=== PATIENT | female | born 1975 | race Caucasian/White ===

== ENCOUNTER → 2017-10-14 | Outpatient (CLI) | payer OTHER ==
[~2017-10-14] MED LIST: LIDOCAINE 1%, 20ML ONE; LIDOCAINE 1%-EPI 1:100K, 20ML ONE; SODIUM BICARBONATE 4.2%, 5ML ONE
== END | disposition home or self-care (01) ==
LOC: CFH 08:07
PROVIDERS: ATTEND Obstetrics & Gynecology
DX: R92.0 Mammographic microcalcification found on diagnostic imaging of breast (principal)
CPT/HCPCS: 19081; 77065; 88305; J3490

== ENCOUNTER → 2017-10-21 | Outpatient (CLI) | payer OTHER | END | disposition home or self-care (01) | LOC: CFH 09:10 | PROVIDERS: ATTEND Obstetrics & Gynecology | DX: R92.0 Mammographic microcalcification found on diagnostic imaging of breast (principal); Z86.000 Personal history of in-situ neoplasm of breast | CPT/HCPCS: 19081; 77066; J3490; 88305 ==

== ENCOUNTER 2017-11-19 12:14 | Day surgery (SDC) | payer OTHER ==
[2017-11-17 11:11] LABS: BASOPHILS # (AUTO) 0.09 x10^3/uL (0-0.1); BASOPHILS % (AUTO) 2 % (0-1); EOSINOPHILS % (AUTO) 5 % (1-7); LYMPHOCYTES % (AUTO) 27 % (22-44); MD NO; MEAN CORPUSCULAR HEMOGLOBIN 30.6 pg (27.0-34.8); MEAN CORPUSCULAR HGB CONC 33.8 g/dL (32.4-35.8); MEAN CORPUSCULAR VOLUME 90.6 fL (80-100); MEAN PLATELET VOLUME 9.4 fL (7.4-10.4); MONOCYTES # (AUTO) 0.61 x10^3/uL (0.2-0.8); MONOCYTES % (AUTO) 10 % (2-9); NEUTROPHILS % (AUTO) 57 % (42-75); PLATELET COUNT 252 x10^3/uL (130-400); RED BLOOD COUNT 4.44 x10^6/uL (3.82-5.3); RED CELL DISTRIBUTION WIDTH 12.9 % (9.6-15.2)
[~2017-11-19] VITALS: Ht 167.6 cm; Wt 61.9 kg
[~2017-11-19 12:14] MED LIST changes: +BUPIVACAINE/PF-EPI 0.25% 1:200K ONE; +ISOSULFAN BLUE 10 MG/ML, 5ML IV ONE; -LIDOCAINE 1%, 20ML ONE; -LIDOCAINE 1%-EPI 1:100K, 20ML ONE; +No meds per pt.; -SODIUM BICARBONATE 4.2%, 5ML ONE
[2017-11-19] MEDS ORDERED: LACTATED RINGERS 1,000 ML IV SCH ×2 (12:41→20:22)
[2017-11-19 12:48] VITALS: BP 143/91
[2017-11-19] MEDS ORDERED: LIDOCAINE-MPF 1%, 2ML ONE (13:46)
[2017-11-19] MEDS ORDERED: GABAPENTIN 300 MG CAPSULE PO ONE (14:00)
[2017-11-19] MEDS ORDERED: ACETAMINOPHEN 500 MG TABLET PO ONE (14:00)
[2017-11-19] MEDS ORDERED: ONDANSETRON ODT 8 MG PO ONE (14:00)
[2017-11-19] MEDS ORDERED: SCOPOLAMINE PATCH, 1.5MG PATCH.TD72 TD ONE (14:00)
[2017-11-19] MEDS ORDERED: FENTANYL PF 250 MCG/5ML ONE (14:48)
[2017-11-19] MEDS ORDERED: LIDOCAINE-MPF 2% ,5ML ONE (14:48)
[2017-11-19] MEDS ORDERED: DEXAMETHASONE 4 MG/ML, 1ML ONE (14:52)
[2017-11-19] MEDS ORDERED: ONDANSETRON 2MG/ML, 2ML ONE (14:52)
[2017-11-19] MEDS ORDERED: PROPOFOL 10 MG/ML, 20ML ONE (14:52)
[2017-11-19] MEDS ORDERED: CEFAZOLIN 1,000 MG ONE ×2 (14:52→15:29)
[2017-11-19] MEDS ORDERED: ROCURONIUM 10 MG/ML,10ML ONE (15:25)
[2017-11-19] MEDS ORDERED: SUCCINYLCHOLINE 20 MG/ML, 10ML ONE (15:25)
[2017-11-19] MEDS ORDERED: BACITRACIN 50,000 UNIT ONE (15:29)
[2017-11-19] MEDS ORDERED: GENTAMICIN 80 MG/2 ML ONE (15:29)
[2017-11-19] MEDS ORDERED: MEPERIDINE/PF 25MG/0.5ML IVPush PRN (16:30)
[2017-11-19] MEDS ORDERED: OXYcodone 5 MG/5 ML ORAL.SOL UDC PO PRN (16:30)
[2017-11-19] MEDS ORDERED: FENTANYL PF 100 MCG/2ML IV PRN (16:30)
[2017-11-19] MEDS ORDERED: PROMETHAZINE 25 MG SUPP PR PRN (16:30)
[2017-11-19] MEDS ORDERED: LABETALOL 5MG/ML, 20ML IV PRN (16:30)
[2017-11-19] MEDS ORDERED: METOCLOPRAMIDE 5 MG/ML, 2ML IV PRN (16:30)
[2017-11-19] MEDS ORDERED: MORPHINE SULFATE 4 MG/ML, 1ML IVPush PRN (16:30)
[2017-11-19] MEDS ORDERED: PROMETHAZINE 25 MG/ML, 1ML IV PRN (16:30)
[2017-11-19] MEDS ORDERED: ALBUTEROL/IPRATROPIUM 2.5MG/0.5MG, 3 ML NPPB PRN (16:30)
[2017-11-19] MEDS ORDERED: DIAZEPAM 5 MG/ML, 2ML IVPush PRN (16:30)
[2017-11-19] MEDS ORDERED: ONDANSETRON ODT 8 MG PO PRN (16:30)
[2017-11-19] MEDS ORDERED: EPHEDRINE 50 MG/ML, 1ML IM PRN (16:30)
[2017-11-19] MEDS ORDERED: HYDROmorphone 1 MG/ML, 1ML IV PRN (16:30)
[2017-11-19] MEDS ORDERED: MIDAZOLAM 1 MG/ML, 2ML IV PRN (16:30)
[2017-11-19] MEDS ORDERED: MEPERIDINE/PF 50 MG/ML ONE (18:14)
[2017-11-19] MEDS ORDERED: FENTANYL PF 100 MCG/2ML ONE (19:19)
[2017-11-19] MEDS ORDERED: OXYcodone 5 MG/5 ML ORAL.SOL UDC ONE (19:19)
[2017-11-19] MEDS ORDERED: morphine SULFATE 10 MG/ML, 1ML IVPush PRN (20:30)
[2017-11-19] MEDS ORDERED: ONDANSETRON 2MG/ML, 2ML IVPush PRN (20:30)
== END 2017-11-19 21:35 | disposition home or self-care (01) ==
LOC: OUT 12:14 → EDSTATUS 15:00 → 4NOR 20:03 → OUT 21:35
PROVIDERS: ATTEND Surgery
DX: D05.11 Intraductal carcinoma in situ of right breast (principal); D05.12 Intraductal carcinoma in situ of left breast; Z87.891 Personal history of nicotine dependence; Z72.89 Other problems related to lifestyle
CPT/HCPCS: 19303; 36415; 38525; 38792; 71045; 84703; 85025; 88305; 88307; 88329; 88331; 88333; A9541; C1729; C1762; C1789; C9898; J0330; J0690; J1100; J1580; J2175; J2405; J2704; J3010; J3490; J7120; Q0162

== ENCOUNTER 2018-04-27 10:09 | Day surgery (SDC) | payer OTHER ==
[~2018-04-27] VITALS: Ht 167.6 cm; Wt 63.0 kg
[~2018-04-27 10:09] MED LIST changes: -BUPIVACAINE/PF-EPI 0.25% 1:200K ONE; -ISOSULFAN BLUE 10 MG/ML, 5ML IV ONE
[2018-04-27] MEDS ORDERED: MIDAZOLAM 1 MG/ML, 2ML ONE (10:30)
[2018-04-27] MEDS ORDERED: FENTANYL PF 250 MCG/5ML ONE (10:31)
[2018-04-27] MEDS ORDERED: LACTATED RINGERS 1,000 ML IV SCH (10:37)
[2018-04-27 10:47] VITALS: BP 141/91
[2018-04-27] MEDS ORDERED: BUPIVACAINE 0.25% ONE (10:58)
[2018-04-27] MEDS ORDERED: LIDOCAINE-MPF 1%, 2ML INFIL ONE (11:00)
[2018-04-27] MEDS ORDERED: PROMETHAZINE 25 MG/ML, 1ML IV PRN (11:30)
[2018-04-27] MEDS ORDERED: ACETAMINOPHEN 325 MG TABLET PO PRN (11:30)
[2018-04-27] MEDS ORDERED: ONDANSETRON ODT 8 MG PO PRN (11:30)
[2018-04-27] MEDS ORDERED: ONDANSETRON 2MG/ML, 2ML IV PRN (11:30)
[2018-04-27] MEDS ORDERED: HYDROmorphone 2 MG/ML, 1ML IVPush PRN (11:30)
[2018-04-27] MEDS ORDERED: PROCHLORPERAZINE 5 MG/ML, 2ML IV PRN (11:30)
[2018-04-27] MEDS ORDERED: LORazepam 2 MG/ML, 1ML IVPush PRN (11:30)
[2018-04-27] MEDS ORDERED: DIAZEPAM 5 MG/ML, 2ML IVPush PRN (11:30)
[2018-04-27] MEDS ORDERED: MEPERIDINE/PF 25MG/0.5ML IVPush PRN (11:30)
[2018-04-27] MEDS ORDERED: FENTANYL PF 100 MCG/2ML IV PRN (11:30)
[2018-04-27] MEDS ORDERED: OXYcodone 5 MG/5 ML ORAL.SOL UDC PO PRN (11:30)
[2018-04-27] MEDS ORDERED: ONDANSETRON 2MG/ML, 2ML ONE (11:32)
[2018-04-27] MEDS ORDERED: DEXAMETHASONE 4 MG/ML, 1ML ONE (11:32)
[2018-04-27] MEDS ORDERED: PROPOFOL 10 MG/ML, 20ML ONE (11:32)
[2018-04-27] MEDS ORDERED: NEOSTIGMINE 1 MG/ML, 10ML ONE (11:32)
[2018-04-27] MEDS ORDERED: ROCURONIUM 10MG/ML,5ML ONE (11:32)
[2018-04-27] MEDS ORDERED: GLYCOPYRROLATE 0.2MG/1ML, 5ML ONE (11:32)
[2018-04-27] MEDS ORDERED: SUCCINYLCHOLINE 20 MG/ML, 10ML ONE (11:32)
[2018-04-27] MEDS ORDERED: CEFAZOLIN 1,000 MG ONE (11:32)
[2018-04-27] MEDS ORDERED: LIDOCAINE 4%, 4 ML SYR/CANN TP ONE (11:34)
[2018-04-27] MEDS ORDERED: ACETAMINOPHEN 325 MG TABLET ONE (12:50)
[2018-04-27] MEDS ORDERED: ACETAMINOPHEN 650 MG/20.3 ML UDC ONE (12:50)
[2018-04-27] MEDS ORDERED: OXYcodone 5 MG/5 ML ORAL.SOL UDC ONE (12:50)
== END 2018-04-27 14:35 | disposition home or self-care (01) ==
LOC: OUT 10:09
PROVIDERS: ATTEND Obstetrics & Gynecology
DX: Z30.2 Encounter for sterilization (principal); N80.9 Endometriosis, unspecified
CPT/HCPCS: 58661; 58662; 81025; 88305; J0330; J0690; J1100; J2250; J2405; J2704; J2710; J3010; J3490; J7120; 88302

== ENCOUNTER 2018-05-14 05:47 | Day surgery (SDC) | payer OTHER ==
[~2018-05-14] VITALS: Ht 167.6 cm; Wt 63.7 kg
[2018-05-14 06:15] VITALS: BP 123/88
[2018-05-14] MEDS ORDERED: LACTATED RINGERS 1,000 ML IV SCH (06:15)
[2018-05-14] MEDS ORDERED: GENTAMICIN 80 MG/2 ML ONE (06:38)
[2018-05-14] MEDS ORDERED: METHYLENE BLUE 10 MG/ML 10ML ONE (06:38)
[2018-05-14] MEDS ORDERED: SODIUM BICARBONATE 1 MEQ/ML, 50ML VIAL ONE (06:38)
[2018-05-14] MEDS ORDERED: ROPIvacaine/PF 0.5%, 30 ML ONE (06:39)
[2018-05-14] MEDS ORDERED: BACITRACIN 50,000 UNIT ONE (06:39)
[2018-05-14] MEDS ORDERED: EPINEPHRINE 1 MG/ML, 1ML ONE (06:39)
[2018-05-14] MEDS ORDERED: LIDOCAINE-MPF 2% ,5ML ONE (06:39)
[2018-05-14] MEDS ORDERED: MIDAZOLAM 1 MG/ML, 2ML ONE (06:40)
[2018-05-14] MEDS ORDERED: FENTANYL PF 250 MCG/5ML ONE (06:41)
[2018-05-14] MEDS ORDERED: ROCURONIUM 10MG/ML,5ML ONE (06:41)
[2018-05-14] MEDS ORDERED: CEFAZOLIN 1,000 MG ONE ×2 (06:42)
[2018-05-14] MEDS ORDERED: WATER-INJECTION,STERILE 10 ML IV ONE (06:43)
[2018-05-14] MEDS ORDERED: APREPITANT 40 MG CAPSULE ONE (06:55)
[2018-05-14] MEDS ORDERED: GABAPENTIN 300 MG CAPSULE PO ONE (07:00)
[2018-05-14] MEDS ORDERED: OxyconTIN ER 10 MG TAB.ER PO ONE (07:00)
[2018-05-14] MEDS ORDERED: SCOPOLAMINE PATCH, 1.5MG PATCH.TD72 TD ONE (07:00)
[2018-05-14] MEDS ORDERED: PHENYLEPHRINE 10 MG/ML ONE (07:04)
[2018-05-14] MEDS ORDERED: KETAMINE 10 MG/ML, 20ML ONE (07:04)
[2018-05-14] MEDS ORDERED: PROPOFOL 10 MG/ML, 20ML ONE (07:04)
[2018-05-14] MEDS ORDERED: DEXAMETHASONE 4 MG/ML, 1ML ONE ×2 (07:11)
[2018-05-14] MEDS ORDERED: HYDROmorphone 2 MG/ML, 1ML IVPush PRN (08:30)
[2018-05-14] MEDS ORDERED: HALOPERIDOL 5 MG/ML IV PRN (08:30)
[2018-05-14] MEDS ORDERED: LABETALOL 5MG/ML, 20ML IV PRN (08:30)
[2018-05-14] MEDS ORDERED: LORazepam 2 MG/ML, 1ML IVPush PRN (08:30)
[2018-05-14] MEDS ORDERED: PROMETHAZINE 25 MG/ML, 1ML IV PRN (08:30)
[2018-05-14] MEDS ORDERED: hydrALAzine 20 MG/ML, 1ML IV PRN (08:30)
[2018-05-14] MEDS ORDERED: ACETAMINOPHEN 325 MG TABLET PO PRN (08:30)
[2018-05-14] MEDS ORDERED: MEPERIDINE/PF 25MG/0.5ML IVPush PRN (08:30)
[2018-05-14] MEDS ORDERED: OXYcodone 5 MG/5 ML ORAL.SOL UDC ONE (09:10)
[2018-05-14] MEDS ORDERED: ACETAMINOPHEN 650 MG/20.3 ML UDC ONE (09:10)
[2018-05-14] MEDS ORDERED: FENTANYL PF 100 MCG/2ML ONE (09:10)
[2018-05-14] MEDS: OXYcodone 5 MG/5 ML ORAL.SOL UDC PO PRN ×2 (09:12→10:25)
[2018-05-14] MEDS: FENTANYL PF 100 MCG/2ML IV PRN ×2 (09:14→09:21)
== END 2018-05-14 11:00 | disposition home or self-care (01) ==
LOC: OUT 05:47
PROVIDERS: ATTEND Plastic Surgery
DX: N65.1 Disproportion of reconstructed breast (principal); Z87.891 Personal history of nicotine dependence; Z72.89 Other problems related to lifestyle; Z85.3 Personal history of malignant neoplasm of breast; Z90.13 Acquired absence of bilateral breasts and nipples
CPT/HCPCS: 11970; 19366; 20926; C1729; C1789; J0171; J0690; J1100; J1580; J2250; J2370; J2704; J3010; J3490; J7120; J8501; J2795; Q9968